=== PATIENT | female | born 1980 | race Caucasian/White ===

== ENCOUNTER 2023-10-26 10:17 | Emergency (ER) | payer MEDICAID ==
[~2023-10-26] VITALS: Ht 170.2 cm; Wt 89.2 kg
[2023-10-26 10:22] VITALS: BP 131/77; PULSE 109; TEMP 98.8; O2SAT 100
[2023-10-26] MEDS: ibuprofen tablet 400 MG TABLET PO ONE (11:51)
[2023-10-26 12:15] LABS: BASOPHILS # (AUTO) 0.1 X10'3 (0-0.2); BASOPHILS % (AUTO) 0.5 % (0-1); EOSINOPHILS # (AUTO) 0.2 X10'3 (0-0.9); EOSINOPHILS % (AUTO) 1.5 % (0-6); HEMATOCRIT 43.6 % (35.0-45.0); HEMOGLOBIN 14.9 g/dl (12.0-16.0); LYMPHOCYTES # (AUTO) 1.4 X10'3 (1.1-4.8); MEAN CORPUSCULAR HEMOGLOBIN 31.1 PG (27.0-31.0); MEAN CORPUSCULAR HGB CONC 34.2 g/dL (33.0-36.5); MEAN CORPUSCULAR VOLUME 90.9 FL (78-98); MEAN PLATELET VOLUME 7.2 FL (7.4-10.4); NEUTROPHILS # (AUTO) 10.2 X10'3 (1.8-7.7); PLATELET COUNT 273 X10'3 (140-440); RED BLOOD COUNT 4.79 X10'6 (4.20-5.60); RED CELL DISTRIBUTION WIDTH 13.7 % (11.5-14.5)
[2023-10-26 12:45] LABS: ALBUMIN 3.2 G/DL (3.4-5.0); ANION GAP 8 (8-16); BLOOD UREA NITROGEN 10 MG/DL (7-18); BUN/CREATININE RATIO 16.7 (10.0-20.0); CALCIUM 8.6 MG/DL (8.5-10.1); CHLORIDE 104 MMOL/L (99-107); GLUCOSE 111 MG/DL (70-104); POTASSIUM 3.5 MMOL/L (3.5-5.1); SODIUM 137 MMOL/L (135-145); TOTAL CARBON DIOXIDE 25.5 MMOL/L (24-32); eCRCL 120 ML/MIN; eGFR > 90 ML/MIN
[2023-10-26] MEDS ORDERED: AMOX-117 PO (12:49)
[2023-10-26] MEDS: normal saline 1000ML IV soln IVB ONE (13:12)
[2023-10-26] MEDS: vancomycin/NS 1 GM ADD-VANTAGE 250 ML X 1 DOSE IV ONE (13:12)
[2023-10-26] MEDS ORDERED: IBUP-1984 PO (14:25)
[2023-10-26 15:03] VITALS: RESP 16
[2023-10-26] MEDS: HYDROcodone/acetaminophen 5mg/325mg tablet PO ONE (15:03)
[2023-10-26] MEDS: piperacillin/tazo 3.375gm/50ml 50 ML IV SCH (15:11)
== END 2023-10-26 15:53 | disposition home or self-care (01) ==
LOC: ER 10:17
DX: K02.9 Dental caries, unspecified (principal); K00.6 Disturbances in tooth eruption; Z79.2 Long term (current) use of antibiotics; Z79.1 Long term (current) use of non-steroidal anti-inflammatories (NSAID)
CPT/HCPCS: 36415; 76536; 80048; 83605; 84145; 85025; 87040; 96365; 96366; 96367; 99285; J2543; J3370; J7030